=== PATIENT | male | born 1935 | race Asian ===

== ENCOUNTER 2024-03-13 08:02 | Outpatient (AMB) | payer OTHER, SELFPAY ==
--- NOTE | 2024-03-13 08:04 | MHC.OFFVIS ---
Intake Visit Reasons: Freq urination Intake Note: New patient Presents for Frequent Urination/BPH Any Urology Medication: Myrbetriq, Tamsulosin, Finasteride Antibiotic Allergies: None Blood Thinners: Aspirin PVR: 0ml Building Maintenance Custodian: Building Maintenance Custodian Present Accompanied by: Family/Other Allergies chlorthalidone Allergy (Verified 03/13/24 08:26) Unknown hydrochlorothiazide Allergy (Verified 03/13/24 08:26) hyponatremia acetaminophen Allergy (Uncoded 03/13/24 08:26) hepatitis infection citalopram Adverse Reaction (Uncoded 03/13/24 08:26) elevated blood pressure Medication List - Last Reconciled 03/13/24 by BRANDON Tran- amlodipine 2.5 mg PO DAILY aspirin 81 mg PO DAILY atorvastatin 10 mg PO DAILY cholecalciferol (vitamin D3) (Vitamin D3) 25 mcg PO DAILY cyanocobalamin (vitamin B-12) 1,000 mcg PO DAILY entecavir 0.5 mg PO DAILY famotidine 20 mg PO BID finasteride 5 mg PO DAILY folic acid 1 mg PO DAILY lisinopril 20 mg PO DAILY mirabegron ER (Myrbetriq) 50 mg PO DAILY multivitamin with folic acid 400 mcg (Daily-Shanique (with folic acid)) 1 tab PO DAILY tamsulosin 0.4 mg PO DAILY HPI Comments Details: Selvin is a very pleasant 88-year-old [place] male patient of Dr. Loza who was accompanied by his son at today's office visit. 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 He presents to the office today as a new patient for ongoing lower urinary tract symptoms. In discussion with the patient today he reports a longstanding history of lower urinary tract symptoms. He reports previously following up with [facility]. He discusses his most bothersome urinary issue is his episodes of nocturia. He reports nocturia up to 4-5 times per night. Does endorse drinking fluids up until/prior to bed. He reports being on Flomax, finasteride, and Myrbetriq. He reports being on Flomax and finasteride for over a year however started Myrbetriq approximately 6 months ago. He reports no improvement in episodes of nocturia despite these urological medications. In office urinalysis results reviewed with the patient today. PVR 0 mL. When asked he denies any signs and symptoms of sleep apnea. We discussed at length potential causes of nocturia as well as further workup and interventions as well as risks and benefits of these interventions. He denies urinary urgency, urinary frequency, incontinence, hematuria, dysuria, foul smelling urine, changes to urinary stream, flank pain, fever, and or chills. FORMERLY [facility], 1928–1983 Medical History Sick sinus syndrome Chronic diastolic (congestive) heart failure Altered mental status, unspecified Parkinsonian features Moderate tricuspid regurgitation Mild aortic regurgitation Orthostatic hypotension At high risk for falls Ambulates with cane At risk for malnutrition Syncope and collapse Disease due to severe acute respiratory syndrome coronavirus 2 (SARS-CoV-2) Vitamin D deficiency Memory loss Pulmonary congestion Acute cholecystitis Cirrhosis of liver without ascites Arthralgia of hip Back pain without sciatica Knee pain, bilateral Paresthesia Gastritis Dizziness TIA (transient ischemic attack) Constipation due to outlet dysfunction 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 Pre-diabetes Hepatitis C Dyslipidemia Hypertension BPH (benign prostatic hyperplasia) Review of Systems Eyes Reports no additional complaints ENT Reports no additional complaints Card Reports as per HPI Resp Reports as per HPI GI Reports as per HPI Reports as per HPI Musc Reports as per HPI Neuro Reports as per HPI Psych Reports no additional complaints Endo Reports as per HPI Fab/Lymph Reports no additional complaints Aller/Immun Reports no additional complaints Physical Exam Const General: cooperative, healthy appearing, comfortable, no acute distress, well developed, alert and awake Orientation/consciousness: oriented to person Limitations: ambulation with cane HEENT Head: Yes normal to inspection, Yes normocephalic and Yes atraumatic Ears: hearing grossly normal bilaterally Eyes General: appearance normal, both eyes and all related structures Neck Neck: Yes normal visual inspection and Yes trachea midline Chest Chest palpation & inspection: normal inspection of the chest Resp Effort & Inspection: normal respiratory effort and able to speak in complete sentences Cardio Rate: regular rate GI Inspection: Yes normal to inspection General: Yes no CVA tenderness Back/Spine/Pelvis Back: no CVA tenderness Skin General skin exam: no rashes or lesions noted Neuro General: oriented to person Extrem General: Yes normal to inspection Psych Appearance: grossly normal and well kempt Mental Status: mental status grossly normal Speech and movement: Normal speech and movement present and Clear speech present Affect: normal affect Attitude: cooperative Thought process: Normal thought process present Thought content: Normal thought content present Insight: Fair insight present (Psych) Judgement: Fair judgement present (Psych) Office Procedures Post Void Residual Post Residual Void Post Void Residual (PVR): 0 [id number] Void Residual by ultrasound Results AMB Urinalysis, Automated UA Leukoctes 0 Ranjit/uL Last Edit by Lashae Nguyen [facility] on 03/13/24 08:27 UA Nitrite Negative Last Edit by Lashae Nguyen [facility] on 03/13/24 08:27 UA Urobilinogen 0.2 mg/dL Last Edit by Lashae Nguyen [facility] on 03/13/24 08:27 UA Protein 0 mg/dL Last Edit by Lashae Nguyen [facility] on 03/13/24 08:27 UA pH 6.0 Last Edit by Lashae Nguyen [facility] on 03/13/24 08:27 UA Blood 0 Ash/uL Last Edit by Lashae Nguyen [facility] on 03/13/24 08:27 UA Specific [place] 1.010 Last Edit by Lashae Nguyen [facility] on 03/13/24 08:27 UA Ketone Negative Last Edit by Lashae Nguyen [facility] on 03/13/24 08:27 UA Bilirubin 0 mg/dL Last Edit by Lashae Nguyen [facility] on 03/13/24 08:27 UA Glucose 0 mg/dL Last Edit by Lashae Nguyen [facility] on 03/13/24 08:27 Assessment & Plan Assessment & Plan (1) BPH loc w urin obs/LUTS: Code(s): N40.1 - Benign prostatic hyperplasia with lower urinary tract symptoms Category: Medical (2) Nocturia: Code(s): R35.1 - Nocturia Category: Medical Plan In office urinalysis results reviewed with the patient today; as noted above. PVR 0 mL. We discussed at length potential causes of nocturia as well as further workup and interventions. We discussed risks and benefits of these interventions. All questions were answered. Will obtain retroperitoneal ultrasound for further assessment evaluation. SAL offered however deferred. Will obtain PSA for further assessment evaluation. Stop Myrbetriq. Start Gemtesa as discussed and prescribed. Continue finasteride and Flomax as prescribed. We discussed bladder triggers/irritants. We discussed importance of limiting fluids 2-3 hours prior to bed to decrease episodes of nocturia. Discussed signing medical release form to obtain previous urology records for continuity of care. We discussed possible near future in office cystoscopy and or urodynamics for further assessment evaluation. Follow-up in 1-3 months with imaging, PSA, and PVR; or sooner with any issues, concerns, and or questions. Orders: Orders AMB Urinalysis Automated Today Z13.9 - Encounter for screening, unspecified AMB Post Void Residual by ultrasound Today N40.0 - Benign prostatic hyperplasia without lower urinary tract symptoms US retroperitoneal comp Today R35.1 - Nocturia Prostate Specific Antigen Today N40.1 - Benign prostatic hyperplasia with lower urinary tract symptoms, R35.1 - Nocturia Medications: New vibegron (Gemtesa) 75 mg PO DAILY 30 days 30 tabs 3RF N32.81 - Overactive bladder Patient Instructions: The patient had an opportunity to ask questions regarding the treatment plan. All questions were answered. Physical exam, labs, and imaging were discussed and reviewed in detail. As well as risks, benefits, and discussion of treatment choices. No major barriers to understanding were identified. The patient expressed understanding and agreement with the above treatment plan. The patient was made aware they should contact our office by phone for worsening of their current condition, the appearance of new symptoms, or with any questions or concerns. Compliance is encouraged with any medications and follow up testing that is ordered. It is a privilege to be allowed the opportunity to participate in? your urological care.? Again, if you have any questions or concerns If you have any questions or concerns please do not hesitate to contact me. The office is [phone]. This note is constructed using voice recognition software. While every effort has been made to ensure accuracy marketing production manager errors may have been included. Yours sincerely, TIFFANY Tran Coding Level of Care Code New Pt Level 4 (89959) Diagnoses BPH loc w urin obs/LUTS N40.1 Nocturia R35.1 CPT Codes Post Residual Void - PVR CPT Code: 31813-[id number] Void Residual by ultrasound ([id number])
== END 2024-03-13 08:41 | disposition home or self-care (01) ==
PROVIDERS: PCP Student in an Organized Health Care Education/Training Program; Visit Provider Nurse Practitioner Family
DX: N40.1 Benign prostatic hyperplasia with lower urinary tract symptoms (principal); R35.1 Nocturia; Z13.9 Encounter for screening, unspecified
CPT/HCPCS: 99204

== ENCOUNTER 2024-03-13 08:54 | Outpatient (REF) | payer OTHER, SELFPAY ==
--- OUTSIDE RECORDS SUMMARY | 2024-03-13 10:03 | XMS_ITS | Encounter Summary ---
Author Organization [facility] Address [address] [place] [address] Care Team Providers Care Mlt Name Role Phone Juliet Loza Primary Care Provider [phone] Encounter Details Date Type Department Care Team (Latest Contact Info) Description 03/06/2024 Travel Social History Tobacco Use Types Packs/Day Years Used Date Smoking Tobacco: Never Cigarettes 0.3 25 19 76 - 2000 Passive Smoke Exposure: Never Smokeless Tobacco: Never Alcohol Use Standard Drinks/Week Comments No 0 (1 standard drink = 0.6 oz pur e alcohol) Social Connections Answer Date Recorded Connectedness 1 10/27/2023 Financial Resource Strain Answer Date R ecorded Financial Resource Strain 1 2023 Stress Answer Date Recorded Stress 1 10/27/2023 Physical Activity Answer Date Recorded Physical Activity 0 10/04/2018 Food Insecurity Answer Date Recorded Food 1 10/27/2023 Transportation Needs Answer Date Record ed Transportation 1 10/27/2023 Housing Stability Answer Date Recorded Housing 1 10/27/2023 Safety and Environment Answer Date Isaías rded Safety 0 10/15/2021 Utilities Answer Date Recorded Utilities 1 10/27/2023 Employment Answer Date Recorded Stress 0 08/20/2019 Sex and Gender Information Value Date Recorded Sex Assigned at Male 02/17/2017 5:58 AM PST Legal Sex Male 11:36 AM PDT Gender Identity Male 02/17/2017 5:58 AM PST Sexual Orientation Straight 02/17/2017 5: 58 AM PST COVID-19 Exposure Response Date Recorded In the last 10 days, have yo u been in contact with someone who was confirmed or suspected to have Coronavirus/COVID-19? No / Unsure 03/06/2024 9:56 AM EST documented as of this encounter Plan of Treatment Upcoming Encounters Date Type Department Care Team (Late st Contact Info) Description 05/01/2024 9:40 AM EDT Office Visit [facility] [address] [place] [address] Jermaine Rosario DDS [address] [place] [address] documented as of this encounter Goals Goal Patient Goal Type Associated Problems Recent Progress Patient-Stated? Author Blood Pressure < 130/80 Blood Pressure HTN (hypertension) 143/88( 025 10:33 AM EST) No Allison Salazar, PharmD documented as of this encounter Visit Diagnoses Not on filedocumented in this encounter Additional Health Concerns Assessment Noted Time PHQ-9 Depression Total Score: 0 10/27/19 24 8:47 AM PDT documented as of this encounter Care Teams Mlt Relationship Specialty Start Date End Date Juliet Loza PA [facility] [place] [address] PCP - General Primary Care 08/11/23 documented as of this encounter
--- OUTSIDE RECORDS SUMMARY | 2024-03-13 10:03 | XMS_ITS | Clinical Summary ---
Author Organization [facility] Address [address] [place] [address] Care Team Providers Care Information Systems Project Manager Name Role Phone Juliet Loza Primary Care Provider [phone] Source Comments PLEASE NOTE, if this patient is a minor, it may be UNLAWFUL to discuss sensitive information that is contained in these records (such as FAMILY PLANNING, MENTAL HEALTH or SUBSTANCE ABUSE) with the minor patient's parent or other person without the patient's specific authorization.[facility] Allergies Active Allergy Reactions Criticality Noted Date Comments Acetaminophen 02/14/2013 Hepatitis Infection. Chlorthalidone 04/18/2019 Citalopram 02/14/2013 Other reaction(s): elevated blood pressure Hydrochlorothiazide 11/08/2021 Hyponatremia Medications caneIndications :Knee pain, bilateral Pt with knee arthritis , use with ambulation [id number] 1 Each 0 016 Active entecavir (BARACLUDE) 0.5 mg tabletIndicatio ns:Encounter for medical examination to establish care Take 1 Tab by mouth once daily 018 Active acetaminophen (TYLENOL) 500 mg tablet Pain Reliever Extra Strength 500 mg tablet TAKE 1 CAPSULE BY MOUTH EVERY 6 HOURS NEEDED FOR PAIN Active albuterol sulfate 90 mcg/actuation inhaler albuterol sulfate HFA 90 mcg/actuation aerosol inhaler Active food supplemt, lactose-reduced (BOOST CALORIE SMART) liquidIndicatio ns:Other fatigue,Decreas e in appetite,At risk for malnutrition Take by mouth 3 (three) times daily as needed for other reason (in place of a meal) Take [address] of a meal. Up to 3 times per day as needed 118 mL 11 022 Active trospium (SANCTURA) 20 mg tablet Take 20 mg by mouth 022 Active multivitamin tablet Take 1 Tablet by mouth once daily 90 Tablet 1 023 Active polyethylene glycol, PEG, 3350 (MIRALAX) 17 gram packetIndicatio ns:Constipation due to outlet dysfunction Take 17 g by mouth once daily NEEDED FOR CONSTIPATION!! 30 Packet 5 Active multivit with minerals/lutein (MULTIVITAMIN 50 PLUS ORAL) Daily, 0 Refills, Maintenance, 07/04/22 13:48:00 EDT, Partial fill upon patient request if the prescription is for a schedule II opioid drug. Active prednisoLONE acetate (PRED-FORTE) 1 % ophthalmic suspension INSTILL 1 DROP IN THE LEFT EYE 4 (FOUR) TIMES DAILY 10 mL 1 023 Active melatonin 3 mg tabletIndicatio ns:Insomnia, unspecified TAKE 1 TABLET AT BEDTIME NEEDED FOR SLEEP 30 Tablet 2 Active jeanne.stockin g,thigh,reg,med Indications:Ort hostatic hypotension jeanne.stocking ,thigh,reg,med 15 - 20 MMHG dispense 2. one for each leg. 2 Each Active MISCELLANEOUS MEDICAL SUPPLY MISCIndications :Parkinsonian features,At high risk for falls,Ambulates with cane Handicap ramp Dx: At high risk for falls, ambulates with cane, parkinsonian features Duration: 99 years 1 Each Active MISCELLANEOUS MEDICAL SUPPLY MISCIndications :Mixed stress and urge urinary incontinence,In continence of feces, unspecified fecal incontinence type Please dispense size M gloves. Dx:incontinence of feces and mixed incontinence of urine Duration: 99 years 100 Each 2 Active MISCELLANEOUS MEDICAL SUPPLY MISCIndications :At risk for malnutrition,Me alysia loss Please dispense ensure. Dx: At risk for malnutrition and memory loss. Duration: 99 years 30 Each 2 024 Active famotidine (PEPCID) 20 mg tabletIndicatio ns:Chronic heartburn Take 1 Tablet by mouth 2 (two) times daily 180 Tablet 1 Active tamsulosin (FLOMAX) 0.4 mg 24 hr capsuleIndicati ons:Benign prostatic hyperplasia with urinary frequency Take 1 Capsule by mouth once daily for 30 days 30 Capsule Active amLODIPine (NORVASC) 2.5 mg tabletIndicatio ns:Essential hypertension Take 1 Tablet by mouth once daily 90 Tablet 024 Active aspirin [address] tablet Take 1 Tablet by mouth once daily 90 Tablet 1 024 Active atorvastatin (LIPITOR) 10 mg tabletIndicatio ns:Dyslipidemia Take 1 Tablet by mouth nightly at bedtime 90 Tablet 1 024 Active cyanocobalamin (VITAMIN B-12) 1,000 mcg tablet Take 1 Tablet by mouth once daily 90 Tablet 1 024 Active midodrine (PROAMATINE) 2.5 mg tablet Take 1 Tablet by mouth once daily 90 Tablet 1 024 Active MISCELLANEOUS MEDICAL SUPPLY MISCIndications :Routine general medical examination at a health care facility,Esha prajapati,Benign prostatic hyperplasia with urinary frequency,Chron ic diastolic (congestive) heart failure (HCC-CMS),Sick sinus syndrome (HCC-CMS),Cirrh osis of liver without ascites, unspecified hepatic cirrhosis type (HCC-CMS),Essen tial hypertension,Dy slipidemia,Enco unter for medical examination to establish care,Mixed stress and urge urinary incontinence,In continence of feces, unspecified fecal incontinence type by miscellaneous route once daily Ramp for home 1 Each Active blood pressure monitorIndicati ons:Essential hypertension Use to check blood pressure daily and prn. Dx: I10 LOS: 99 Pt needs automatic blood pressure monitor because it is extremely difficult to obtain a manual blood pressure on self. Additionally, pt is not medically trained to use a stethoscope or how to read a sphygmometer. 1 Kit 024 Active folic acid (FOLVITE) 1 mg tablet Take 1 Tablet by mouth once daily 90 Tablet 1 024 Active VITAMIN D3 25 mcg (1,000 unit) capsuleIndicati ons:Vitamin D deficiency TAKE 1 CAPSULE ONCE DAILY 90 Capsule 5 11/04/2 024 Active diaper,brief,ad ult,disposableI ndications:Mixe d stress and urge urinary incontinence,In continence of feces, unspecified fecal incontinence type Height 5 ft 4 in Weight 144 pounds Diagnosis mixed stress and urge urinary incontinence Incontinence of feces, unspecified fecal incontinence type 120 Each 3 024 Active finasteride (PROSCAR) 5 mg tabletIndicatio ns:Encounter for medical examination to establish care TAKE 1 TABLET ONCE DAILY 90 Tablet 024 Active DAILY-HANH, WITH FOLIC ACID, 400 mcg tab TAKE 1 TABLET ONCE DAILY 90 Tablet 024 Active MYRBETRIQ 50 mg [id number] :Benign prostatic hyperplasia with urinary frequency TAKE 1 TABLET ONCE DAILY AT BEDTIME 30 Tablet 024 Active MISCELLANEOUS MEDICAL SUPPLY MISCIndications :Mixed stress and urge urinary incontinence,In continence of feces, unspecified fecal incontinence type Please dispense size medium adult diapers. 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 Whelan, last seen 11/2021 Assessment below For now I have reduced the dose of Lisinopril to 10 mg a day and only to be taken if his SBP >150 mmHg, I have also asked him to wear support stockings and use a cane or a walker for walking and have asked his grandson to discuss this with patient's PCP team to help him get one of this. I have taken liberty to see him in 3-6 months, depending on how he is doing. Also he may want to increase some of his water intake since his BP is running low at times. Orthostatic hypotension 12/19/2021 At high risk for falls 10/25/2021 At risk for malnutrition 10/15/2021 Ambulates with cane 10/15/2021 Syncope and collapse 09/17/2021 Disease due to severe acute respiratory syndrome coronavirus 2 (SARS-CoV-2) 09/05/2021 Overview (09/17/2021): Problem added by Discern Expert Vitamin D deficiency, unspecified 04/19/2020 Memory loss 05/29/2017 Pulmonary congestion 09/30/2016 Overview (09/30/2016): Pt c/o sob after lap cholecystectomy 09/2016. CXR show pleural effusion and mild chf. BNP= 362. ECHO( 09/30/16): Summary: The aortic valve appears trileaflet. There is mild aortic regurgitation. The left ventricular size is normal. The left ventricular wall thickness is mildly increased. Normal LV systolic function. Ejection fraction is 55-65%. There are no regional wall motion abnormalities. Grade II, moderate diastolic dysfunction with pseudonormal LV filling pattern. There is no doppler evidence of increased filling pressures. The left atrium is moderately dilated. The right ventricular size and function appears grossly normal. The right atrium is moderately dilated. The pulmonary artery systolic pressure estimation is 35-40 mmHg. The inferior vena cava appears mildly dilated. There is no pericardial effusion. There is no pleural effusion. CXR( 09/30/16): No significant interval change. Small, unchanged pleural effusions. Persistent atelectasis at the right lung base. Acute cholecystitis 09/28/2016 Overview (09/28/2016): Went to [facility] on 09/23/2016 with 3 days of right upper quadrant pain with associated nausea, found to have acute cholecystitis on physical exam, consistent on imaging. Patient was taken to the OR for a laparoscopic cholecystectomy (Hannah, 09/23/2016). Patient tolerated the procedure well with no complications. Over the weekend patient reported shortness of breath when walking to the bathroom which mildly improved with duonebs and CPT. Patient continued to progress, was ambulating well, ling diet, voiding, and passing flatus and his leukocytosis resolved. US obtained on 09/26 to assess for fluid in the GB fossa which found none. Due to continued complains of dyspnea, Pulmonology was consulted on 09/27/2016 who recommended conservative management. A dose of Lasix was given on 09/28/2016 with improvement. Pt cleared for discharge by attending physician. Pt tolerating diet, with no nausea or vomiting, pain well control with PO pain medications. Pt ambulating and voiding without difficulty. Per PT eval, he is ok to go home with no services. Patient and family aware that he will to follow up with surgery in 2 weeks, as well as PCP for respiratory congestion follow up. Pt encouraged to use IS at home and short but frequent ambulation. Cirrhosis of liver without ascites ([facility]) 01/2017 Benign localized prostatic h yperplasia with lower urinary tract symptoms (LUTS) 01/19/2016 Overview (03/18/2016): PVU Bening prostatic hypertrophy w/urinary obstruction w/other lower urinary tract symptoms. was started on Flomax along with Finasteride. PVU 02/01/16- Benign prostatic hypertrophy with urinary obstruction with other lower urinary tract symptoms. Cont Flomax and Finasteride. F/u 1 yr. Plan bladder scan next visit Arthralgia of right hip 09/09/2014 Back pain without sciatica 09/08/2014 Overview (10/12/2014): Xray of Lumbar spine- mild retrolisthessi of l5/s1. -multilevel facet arthropathy Right hip- no acute osseous abnormality of hip - mild degenerative changes are seen Knee pain, bilateral 01/30/2014 Overview (06/11/2015): Xray- patellar enthesopathy. Paresthesia 10/10/2013 Gastritis 07/10/2013 Overview (12/19/2013): egd- normal on 12/09/13. TIA (transient ischemic attack) 02/17/2013 Overview (04/14/2017): 2013 - TIA. Had some left sided weakness 02/05/13- carotid US - Right Side: 1-49% stenosis in the Internal Carotid Artery. Antegrade flow in the Vertebral Artery. Multiphasic flow is seen in the Subclavian Artery. Left Side: 1-49% stenosis in the Internal Carotid Artery. Antegrade flow in the Vertebral Artery. Multiphasic flow is seen in the Subclavian Artery. Had left side weakness. Dizziness 02/17/2013 Overview (06/17/2015): Completed physical, occupational therapy, rehab for weakness post tia. Seen by ent- sensorineural hearing loss, bilateral Tinnitus bilateral -- dizziness likely multifactorial. -cva, orthostatsis No vestibular cause is seen Epistaxis- humidification/nasal spray. Resolved now. BPH (benign prostatic hyperplasia) 11/16/2012 Overview (10/26/2015): On Finasteride. Follows Urology at [address]. HTN (hypertension) 11/16/2012 Dyslipidemia 11/16/2012 Hepatitis C 11/16/2012 Overview (02/24/2016): Following [facility]. For hepatitis C, patient has completed therapy with ledipasvir/sofsobuvir for an overall duration of 12 weeks, with end of treatment of response and now evidence of sustained virological reponse Colonoscopy-- normal. Mri - 1.7 cm lesion that is stable since 2009, mostly nodular Hyperplasia. Rpt mri of liver - 07/29- benign appearing lesion within liver that decrease in size. U/s- heterogenous echotexture? Hepatitis ? Cirrhosis. Hep c and hep b viral load - negative. Prediabetes 11/16/2012 Hepatitis B infection 11/16/2012 Overview (02/24/2016): Following [facility]at[facility]. 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 HBV is currently undetectable, continue therapy and reenforce compliance Will continue to need imaging every 6 months as part of surveillance for HCC, will schedule for liver US today Return to clinic in 6 months Had Liver USG on 02/05/16 at [facility]. Cirrhosis+ Left ear hearing loss, tm perforation 11/16/2012 Overview (11/24/2014): Bilateral sensori neural loss, left conductive loss Rt tm fibrosis, suggest hearing aids. Constipation due to outlet dysfunction 3 Overview (08/20/2016): colonoscopy at [facility] on 06/13/16: Int and Ext Hemorrhoids. F/u in 10 yrs or prn. Further testing based on pts age and clinical status Resolved Problems Problem Noted Date Diagnosed Date Resolved Date Chronic midline low back dina n without sciatica 08/11/2015 10/26/2015 Dyspepsia 07/02/2015 10/26/2015 Cellulitis of external cheek, right 06/11/2015 08/13/2015 Pruritus 06/11/2015 10/26/2015 Heart burn 06/11/2015 10/26/2015 Myalgia 12/26/2014 04/03/2015 Tinnitus of left ear 09/08/2014 018 Spondylosis of lumbar region without myelopathy or radiculopathy 09/08/2014 10/26/2015 Tinea pedis of left foot 09/08/2014 Nose congestion 05/02/2014 10/26/2015 Epistaxis 05/02/2014 04/03/2015 Pre-op examination 01/30/2014 6 Eczema 07/10/2013 04/03/2015 DM (diabetes mellitus) ([facility]) 11/16/2012 11/16/2012 H/O vitamin D deficiency 11/16/2012 PTSD (post-traumatic stress disorder) 11/16/2012 10/26/2015 tongue numbness 11/16/2012 08/13/2015 Encounters Date Type Department Care Team Description 03/06/2024 10:20 AM EST Office Visit [address] [place] [address] Elan Chavez DDS Loss of retention of dental crown (Primary Dx) 03/06/2024 Travel 01/26/2024 9:00 AM EST Telemedicine Visit [facility] [place] [address] Tye Hawley MD Luu, Van Mixed stress and urge urinary incontinence (Primary Dx); Incontinence of feces, unspecified fecal incontinence type; Primary hypertension 01/26/2024 Interim Notes [address] [place] [address] Paola Samuels MA 01/26/2024 Travel 01/18/2024 9:00 AM EST Office Visit [address] [place] [address] Elan Chavez DDS Removable partial denture with loss of occlusal relationship (Primary Dx) 01/18/2024 Travel 12/15/2023 9:40 AM EDT Office Visit [address] [address] Laz Buenrostro FNP Luu, Van Mixed stress and urge urinary incontinence (Primary Dx); Incontinence of feces, unspecified fecal incontinence type; Double vision 12/15/2023 Travel from Last 3 Months Immunizations Name Administration Dates Next Due Flu, Adjuvant, 65y+ (Fluad) 11/23/2020 Flu, High Dose, 65y+, Fluzon e High Dose 11/09/2022,11/17/2021,11/20/2019 Flu, Preservative Free 10/14/2016 Hep A, adult 04/26/2021 INFLUENZA, SEASONAL, INJECTABLE 11/24/19,11/20/2019,10/04/2017,10/05,10/31/2014,10/30/2011 Influenza (FLUAD), Trivalent , Adjuvanted 09/26/2018 Influenza (FLUBLOK),recombinant,injectable,prese rvative Free 10/27/2023 Influenza (FLUZONE), high-do se, trivalent, PF 10/04/2017,10/31/2014 Novel [id number]-[id number], all formulations 10/06/2015 Novel [id number]-[id number], preservative-free, injectable 10/06/2015 PFIZER COVID VACCINE, PURPLE CAP, 12+ 04/08/2020 ,03/18/2020,03/18/2020 PNEUMOCOCCAL CONJUGATE PCV 13 01/07/2020, 018 PNEUMOCOCCAL POLYSACCHARIDE PPV23 04/03/2015 Pfizer COVID-19 (Comirnaty), Mrna, Lnp-s, Pf, Keenan-sucrose, 30 Mcg/0.3 Ml, 12yr+ 10/27/2023,03/22/2023 TDAP 09/10/2021,04/14/2017 ZOSTER VACCINE, RECOMBINANT (SHINGRIX) 3,04/26/2021 Family History Medical History Relation Name Comments Arthritis Brother Arthritis Father Hypertension Father Relation Name Status Comments Brother Father Social History Tobacco Use Types Packs/Day Years [...] No / Unsure 03/06/2024 9:56 AM EST Last Filed Vital Signs Vital Sign Reading Time Taken Comments Blood Pressure 143/88 03/06/2024 10:33 AM EST Pulse 87 03/06/2024 10:33 AM EST Temperature 36.7 ??C (98.1 ??F) 10/27/2023 8:47 AM ED T Respiratory Rate 18 10/27/2023 8:47 AM EDT Oxygen Saturation 100% 10/27/2023 8:47 AM EDT Inhaled Oxygen Concentration - - Weight 64.3 kg (141 lb 12.8 oz) 10/27/2023 8:47 AM EDT Height 162.6 cm (5' 4 ) 10/27/2023 8:47 AM EDT Body Mass Index 24.34 10/27/2023 8:47 AM EDT Plan of Treatment Upcoming Encounters Date Type Department Care Team (Late st Contact Info) Description 05/01/2024 9:40 AM EDT Office Visit [facility] Dental [address] [place] [address] Jermaine Rosario, DDS [address] [place] [address] Health Maintenance Due Date Last Done Comments Dental FMX/Pano 1935 Dental Perio Charting 1935 EGD (Upper Endoscopy) 1935 Hepatitis B Screening 1935 06/07/2022 Hepatocellular Carcinoma Screening (HCC) 1937 Advanced Care Planning [address] CT Colonography 1982 Colonoscopy 1982 Fecal DNA 1982 Flexible Sigmoidoscopy 1982 FIT/gFOBT 02/09/2008 02/08/2007 Dental BW 07/11/2022 07/09/2021 Imm-Zoster, Recombinant (3 of 3) 09/20/2022 07/26/2022, 07/25/2022, 04/26/2021, Additional history exists Falls Prevention 07/27/2023 07/26/2022, 03/2021, 10/04/2019 Diabetes Screening 12/23/2023 06/22/2023, 0 06/15/2023, 04/10/2023, Additional history exists Dental Examination 01/20/2024 01/17/2023, 0 06/17/2022, 07/09/2021 Dental Prophy 01/20/2024 01/17/2023, 05/0 06/2022, 07/09/2021 Alcohol and Drug Screen 02/14/2024 10/27/19 24, 04/10/2023, 06/07/2022, Additional history exists Depression Annual Screen 02/14/2024 024, 04/10/2023, 04/14/2017 Tobacco Screening 04/10/2024 04/10/2023, 07/26/2022 Imm-Hepatitis A (2 of 2 - Risk 2-dose series) 08/20/2024 04/26/2021 Postponed from 10/27/2021 (Patient postponement) Medicare Annual Wellness Visit 10/26/2024 10/27/2023, 07/26/2022, 01/25/2021, Additional history exists Imm-DTaP/Tdap/Td (3 - Td or Tdap) 09/11/2031 09/10/2021, 04/14/2017 Imm-Pneumococcal 65+ Completed 01/07/2020, 04/14/2017, 04/03/2015, Additional history exists [id number] Completed 10/27/2023, 08/2023, 03/21/2023, Additional history exists Imm-Influenza Completed 10/27/2023, 10/15, 11/08/2022, Additional history exists Colorectal Cancer Screening Discontinued Goals Goal Patient Goal Type Associated Problems Recent Progress Patient-Stated? Author Blood Pressure < 130/80 Blood Pressure HTN (hypertension) 143/88( 025 10:33 AM EST) No Allison Salazar, PharmD Procedures Procedure Name Priority Date/Time Associated Diagnosis Comments LIMITED ORAL EVALUATION - PROBLEM FOCUSED Routine 03/06/2024 10:20 AM EST Loss of retention of dental crown 30 RECEMENT CROWN Routine 03/06/2024 10: 20 AM EST Loss of retention of dental crown REFERRAL SCANNED DOCUMENT 02/28/2024 3:00 AM EST MANDIBULAR PARTIAL DENTURE ADJUSTMENT Routine 01/18/2024 9:00 AM EST Removable partial denture with loss of occlusal relationship OTHER ORDERS SCANNED DOCUMENT 12/18/2023 3:00 AM EST HEMOGLOBIN GLYCOSYLATED A1C Routine 06/22/2023 11:35 AM EDT Essential hypertension Elevated blood sugar PROPHYLAXIS - ADULT Routine 01/17/2023 1 0:20 AM EST Caries PERIODIC ORAL EVALUATION ESTABLISHED PATIENT Routine 01/17/2023 10:20 AM EST Caries HEPATITIS B SURF ANTIBODY HBSAB Routine 06/07/2022 12:51 PM EDT Screening for viral disease Other problems related to lifestyle BITEWINGS - FOUR RADIOGRAPHIC IMAGES Routine 07/09/2021 10:20 AM EDT Dental caries noted on examination from Last 3 Months or Most Recently Relevant to Health Maintenance Results * REFERRAL SCANNED DOCUMENT (02/28/2024 3:00 AM EST) 02/28/2024 3:00 AM EST [facility] Provider Default SCAN REFERRAL Final Resu lt * OTHER ORDERS SCANNED DOCUMENT (12/18/2023 3:00 AM EST) 12/18/2023 3:00 AM EST Rodriguez Grossman MD SCAN OTHER ORDERS Final Resu lt * (ABNORMAL) HEMOGLOBIN GLYCOSYLATED A1C (06/22/2023 11:35 AM EDT) HEMOGLOBIN A1C 5.9(H) <5.7 % of total Hgb [facility] Comment: For someone without known diabetes, a hemoglobin A1c value between 5.7% and 6.4% is consistent with prediabetes and should be confirmed with a follow-up test. For someone with known diabetes, a value <7% indicates that their diabetes is well controlled. A1c targets should be individualized based on duration of diabetes, age, comorbid conditions, and other considerations. This assay result is consistent with an increased risk of diabetes. Currently, no consensus exists regarding use of hemoglobin A1c for diagnosis of diabetes for children. Blood Blood / Unknown 06/22/2023 1 1:35 AM EDT 06/22/2023 11:35 AM EDT us Juliet MABRY LAB - BLOOD DRAW Final Result Performing Organization Address [facility] Co de Phone Number [employer] [address] [place] [id number], [employer] [address] [address] * HEPATITIS B SURF ANTIBODY HBSAB (06/07/2022 12:51 PM EDT) HEPATITIS B SURFACE ANTIBODY QL NON-REACT JORGE LUIS NON-REACT JORGE LUIS [employer] [facility] Blood Blood / Unknown 06/07/2022 1 2:51 PM EDT 06/07/2022 12:51 PM EDT Mirtha Green HYDROGEOLOGY PROFESSOR-C LAB - BLOOD DRAW Edited Resu lt - Final Performing Organization Address [facility] Co de Phone Number [employer] [address] [address], [employer] [address] [address] from Last 3 Months or Most Recently Relevant to Health Maintenance [facility] Care Teams Information Systems Project Manager Relationship Specialty Start Date End Date Juliet Loza PA [facility] [place] [address] PCP - General Primary Care 08/11/23
--- OUTSIDE RECORDS SUMMARY | 2024-03-13 10:03 | XMS_ITS ---
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) ACTIVE 08/16/2023 DIFFICULTY IN WALKING, NOT E LSEWHERE CLASSIFIED (R26.2 - ICD-10-CM) ACTIVE 08/05/2023 MUSCLE WEAKNESS (GENERALIZED) (M62.81 - ICD-10-CM) ACT JORGE LUIS 08/05/2023 NEED FOR ASSISTANCE WITH PERSONAL CARE (Z74.1 - ICD-10 -CM) ACTIVE 08/05/2023 PARESTHESIA OF SKIN (R20.2 - ICD-10-CM) ACTIVE 0 08/05/2023 SICK SINUS SYNDROME (I49.5 - ICD-10-CM) ACTIVE 0 08/05/2023 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-CM) ACTIVE 08/05/2023 CHRONIC VIRAL HEPATITIS C (B18.2 - ICD-10-CM) ACTIVE 08/05/2023 PREDIABETES (R73.03 - ICD-10-CM) ACTIVE 08/05/19 ESSENTIAL (PRIMARY) HYPERTENSION (I10 - ICD-10-CM) ACT JORGE LUIS 08/05/2023 HYPERLIPIDEMIA, UNSPECIFIED (E78.5 - ICD-10-CM) ACTIVE 08/05/2023 ABNORMAL WEIGHT LOSS (R63.4 - ICD-10-CM) ACTIVE 08/05/2023 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) ACTIVE 08/05/2023 PERSONAL HISTORY OF OTHER SP ECIFIED CONDITIONS (Z87.898 - ICD-10-CM) ACTIVE 08/05/2023 UNSPECIFIED SPEECH DISTURBANCES (R47.9 - ICD-10-CM) AC TIVE 08/05/2023 BENIGN PROSTATIC HYPERPLASIA WITHOUT LOWER URINARY TRACT SYMPTOMS (N40.0 - ICD-10-CM) ACTIVE 08/05/2023 OTHER NONSPECIFIC ABNORMAL F INDING OF LUNG FIELD (R91.8 - ICD-10-CM) ACTIVE 08/05/2023 OBSTRUCTIVE SLEEP APNEA (ANYA LT) (PEDIATRIC) (G47.33 - ICD-10-CM) ACTIVE 08/05/2023 CHRONIC KIDNEY DISEASE, STAG E 3 UNSPECIFIED (N18.30 - ICD-10-CM) ACTIVE 08/05/2023 GASTRO-ESOPHAGEAL REFLUX DIS EASE WITHOUT ESOPHAGITIS (K21.9 - ICD-10-CM) ACTIVE 08/05/2023 ALTERED MENTAL STATUS, UNSPECIFIED (R41.82 - ICD-10-CM ) ACTIVE 08/05/2023 Encounters Encounter Performer Performer Role Encounter Diagnoses Location Date Discharge - Discharged to home or self care - [facility] - Private home/apt. with home health services [facility] 08/05/2023 04:07 pm EDT - 08/11/2023 01:30 pm EDT Immunizations Vaccine Date Influenza 11/09/2022 12:00 am EDT Zostavax(Shingles) 07/26/2022 12:00 am EDT Zostavax(Shingles) 04/26/2021 12:00 am EDT Pneumococcal Conjugate Vaccine (PCV13) 0 04/14/2017 12:00 am EST Hepatitis A 04/26/2021 12:00 am EDT SARS-COV-2 (COVID-19) 04/08/2020 12:00 a m EST SARS-COV-2 (COVID-19) 03/18/2020 12:00 a m EST SARS-COV-2 (COVID-19 BOOSTER) 03/22/2023 12:00 am EST SARS-COV-2 (COVID-19 BOOSTER) 03/12/2022 12:00 am EST SARS-COV-2 (COVID-19 BOOSTER) 11/08/2020 12:00 am EDT Tdap 09/10/2021 12:00 am EDT Tdap 04/14/2017 12:00 am EST pneumococcal, unspecified formulation 12:00 am EST Social History
--- OUTSIDE RECORDS SUMMARY | 2024-03-13 10:03 | XMS_ITS | Encounter Summary ---
Author Organization [facility] Address [address] [place] [address] Care Team Providers Care Pattern Attendant Name Role Phone Juliet Loza Primary Care Provider Reason for Visit * Reason Comments Dental Restorative Removable Prosthetics Encounter Details Date Type Department Care Team ([facility] st Contact Info) Description 03/06/2024 10:20 AM EST Office Visit [facility] [address] [place] [phone] Elan Chavez DDS [address] [place] [address] Loss of retention of dental crown (Primary Dx) Social History Tobacco Use Types Packs/Day Years [...] AM EST documented as of this encounter Last Filed Vital Signs Vital Sign Reading Time Taken Comments Blood Pressure 143/88 03/06/2024 10:33 AM EST Pulse 87 03/06/2024 10:33 AM EST Temperature - - Respiratory Rate - - Oxygen Saturation - - Inhaled Oxygen Concentration - - Weight - - Height - - Body Mass Index - - documented in this encounter Progress Notes * Elan Chavez, DDS - 03/06/2024 11:01 AM EST Limited Exam Subjective Selvin [place], 88 year old male, presents with caregiver for limited exam of LR. Post Graduate Intern: Yes: Icelandic Chief Complaint Patient presents with Dental Restorative Removable Prosthetics Description of pain: none Objective RMHx: Yes Vitals: Vitals: 03/06/24 1033 BP: (!) 143/88 Pulse: 87 BP Site: Left Wrist BP Position: Sitting BP Cuff Size: Regular Adult Pain Score: 0 - No pain Assessment Dx: K08.89 Loss of retention of dental crown (primary encounter diagnosis) Dx Details (Clinical Decision-Making): Patient Complaint: Patient presented with crowns for #30 and #29 that had fallen out. Clinical and Radiographic Findings: Upon examination, tooth #29 is fractured at the gumline and is non-restorable. Tooth #30 is intact and suitable for crown recementation. Treatment Plan: Extract tooth #29 due to its non-restorable condition. Adding tooth to existing partial denture to include tooth #29 after the extraction site heals. Re-cement the crown for #30 after it is from the failed orthodox of #29. Additional Notes: Patient was informed of the condition and treatment options, including potential risks and benefits. Pt understood and agreed on treatment plan. Plan Informed Consent/PARQ (Procedure, Alternatives, Risks, Questions): Discussed limited exam findings and treatment needs, questions answered. Patient confirms informed consent, verbalizes understandingof limited exam findings and treatment plan. Pt informed today's exam was a limited exam, and comprehensive exam was not done today. Treatment needs may exist in other areas which were not examined today. Advised patient seek comprehensive care and return for evaluation of other areas as soon as possible. Dental procedures in this visit [id number] - RECEMENT CROWN 30 (Completed) Service provider: Elan Chavez DDS Billing provider: Elan Chavez DDS D0140 - LIMITED ORAL EVALUATION - PROBLEM FOCUSED (Completed) Service provider: Elan Chavez DDS Billing provider: Elan Chavez DDS Treatment Completed: crown on tooth #30 re-cemented after it is from the failed orthodox of #29. Beautilink cement used. removed excess, rechecked occlusion Referral: No orders of the following type(s) were placed in this encounter: Referral. Rx: No orders of the defined types were placed in this encounter. Behavior: Compliant DA: Gifty Doss [place]: ext #[phone] LOULOU Olivier documented in this encounter Plan of Treatment Upcoming Encounters Date Type Department Care Team (Late st Contact Info) Description 05/01/2024 9:40 AM EDT Office Visit [facility] [address] [place] [phone] Jermaine Rosario DDS [address] [place] [id number] Scheduled Orders Name Type Priority Associated Diagnoses Order Schedule 29 EXTRACTION ERUPTED TOOTH OR EXPOSED ROOT Dental Procedures Routine 1 Occurrences starting 03/06/2024 29 ADD TOOTH TO EXISTING PARTIAL DENTURE Dental Procedures Routine 1 Occurrences starting 03/06/2024 documented as of this encounter Goals Goal Patient Goal Type Associated Problems Recent Progress Patient-Stated? Author Blood Pressure < 130/80 Blood Pressure HTN (hypertension) 143/88( 025 10:33 AM EST) No Allison Salazar, PharmD documented as of this encounter Procedures Procedure Name Priority Date/Time Associated Diagnosis Comments 30 RECEMENT CROWN Routine 03/06/2024 10: 20 AM EST Loss of retention of dental crown LIMITED ORAL EVALUATION - PROBLEM FOCUSED Routine 03/06/2024 10:20 AM EST Loss of retention of dental crown documented in this encounter Visit Diagnoses Diagnosis Loss of retention of dental crown- Primary documented in this encounter Additional Health Concerns Assessment Noted Time PHQ-9 Depression Total Score: 0 10/27/19 8:47 AM PDT documented as of this encounter Care Teams Pattern Attendant Relationship Specialty Start Date End Date Juliet Loza PA [facility] [place] [address] PCP - General Primary Care 08/11/23 documented as of this encounter
--- OUTSIDE RECORDS SUMMARY | 2024-03-13 10:03 | XMS_ITS | Clinical Summary ---
Author Organization [facility] it Address [address] [place] [address] Care Team Providers Care Caregiver Services Home Name Role Phone Almita Escobar NP Primary Care Provider Unavailabl e Social History Tobacco Use Types Packs/Day Years Used Date Smoking Tobacco: Never Assessed Sex and Gender Information Value Date Recorded Sex Assigned at Not on file Gender Identity Not on file Sexual Orientation Not on file Plan of Treatment Health Maintenance Due Date Last Done Comments DTaP,Tdap,and Td Vaccines (1 - Tdap) 1956 Zoster Vaccines (1 of 2) 07/15/1987 Pneumococcal Vaccine: 65+ Ye ars (1 of 1 - PCV) 2002 RSV Immunization Patients 60 + Years Old (1 - 1-dose 75+ series) 2012 Cholesterol Screening (Lipid Panel) 01/16/2022 Depression Screening 01/16/2022 Falls Risk Assessment 01/16/2022 Social Influencers of Health Screening 01/16/2022 COVID-19 Vaccine (2023-2 5 season) 2023 Influenza Vaccine (#1) 2023 HIB Vaccines Aged Out No longer eligi ble based on patient's age to complete this topic HPV Vaccines Aged Out No longer eligi ble based on patient's age to complete this topic Hepatitis A Vaccines Aged Out No long er eligible based on patient's age to complete this topic Hepatitis B Vaccines Aged Out No long er eligible based on patient's age to complete this topic IPV Vaccines Aged Out No longer eligi ble based on patient's age to complete this topic MMR Vaccines Aged Out No longer eligi ble based on patient's age to complete this topic Meningococcal ACWY Vaccine Aged Out N o longer eligible based on patient's age to complete this topic RSV Immunization Patients Un luther 20 months Aged Out No longer eligible b ased on patient's age to complete this topic Varicella Vaccines Aged Out No longer eligible based on patient's age to complete this topic Care Teams Caregiver Services Home Relationship Specialty Start Date End Date Almita Escobar NP Need Updated Address PCP - General 10/26/21
--- OUTSIDE RECORDS SUMMARY | 2024-03-13 10:03 | XMS_ITS | Encounter Summary ---
Author Organization [facility] Address [address] [place] [address] Care Team Providers Care Outboard Technician Name Role Phone Juliet Loza Primary Care Provider [phone] Encounter Details Date Type Department Care Team ([facility] st Contact Info) Description 05/31/2021 Dental Interim Note [facility]aring [facility] Main Dental [address] [place] [phone] Shama Reveles, DMD [address] [place] [address] Social History Tobacco Use Types Packs/Day Years Used Date Smoking Tobacco: Never Cigarettes 0.3 25 19 76 - 2000 Smokeless Tobacco: Never Alcohol Use Standard Drinks/Week Comments No 0 (1 standard drink = 0.6 oz pur e alcohol) Social Connections Answer Date Recorded Social Connections and Isolation 1 10/05/2020 Financial Resource Strain Answer Date R ecorded Financial Resource Strain 1 2020 Stress Answer Date Recorded Stress 1 10/05/2020 Physical Activity Answer Date Recorded Physical Activity 0 10/04/2018 Food Insecurity Answer Date Recorded Food 1 10/05/2020 Transportation Needs Answer Date Record ed Transportation 1 10/05/2020 Housing Stability Answer Date Recorded Housing 1 10/05/2020 Safety and Environment Answer Date Isaías rded Safety 1 10/05/2020 Utilities Answer Date Recorded Utilities 1 10/05/2020 Employment Answer Date Recorded Stress 0 08/20/2019 Sex and Gender Information Value Date Recorded Sex Assigned at Male 02/17/2017 5:58 AM PST Legal Sex Male 11:36 AM PDT Gender Identity Male 02/17/2017 5:58 AM PST Sexual Orientation Straight 02/17/2017 5: 58 AM PST COVID-19 Exposure Response Date Recorded In the last 10 days, have jeremías u been in contact with someone who was confirmed or suspected to have Coronavirus/COVID-19? No / Unsure 06/01/2021 3:57 PM EDT documented as of this encounter Plan of Treatment Upcoming Encounters Date Type Department Care Team (Late st Contact Info) Description 05/01/2024 9:40 AM EDT Office Visit [facility] [address] [place] [phone] Jermaine Rosario DDS [address] [place] [address] documented as of this encounter Goals Goal Patient Goal Type Associated Problems Recent Progress Patient-Stated? Author Blood Pressure < 130/80 Blood Pressure HTN (hypertension) 143/88( 025 10:33 AM EST) No Allison Salazar, PharmD documented as of this encounter Procedures Procedure Name Priority Date/Time Associated Diagnosis Comments 30 DOL COMPOSITE - WISDOM (NON BILLABLE) Routine 05/31/2021 12:00 AM EDT 32 D COMPOSITE - WISDOM (NON BILLABLE) Routine 05/31/2021 12:00 AM EDT 29 MODL COMPOSITE - WISDOM (NON BILLABLE) Routine 05/31/2021 12:00 AM EDT 28 DO COMPOSITE - WISDOM (NON BILLABLE) Routine 05/31/2021 12:00 AM EDT 27 MIDFL COMPOSITE - WISDOM (NON BILLABLE) Routine 05/31/2021 12:00 AM EDT 26 L COMPOSITE - WISDOM (NON BILLABLE) Routine 05/31/2021 12:00 AM EDT 26 D COMPOSITE - WISDOM (NON BILLABLE) Routine 05/31/2021 12:00 AM EDT 26 M COMPOSITE - WISDOM (NON BILLABLE) Routine 05/31/2021 12:00 AM EDT 25 F(V) COMPOSITE - WISDOM (NON BILLABLE) Routine 05/31/2021 12:00 AM EDT 23 DF(V) COMPOSITE - WISDOM (NON BILLABLE) Routine 05/31/2021 12:00 AM EDT 22 MDF(V) COMPOSITE - WISDOM (NON BILLABLE) Routine 05/31/2021 12:00 AM EDT 21 B(V) COMPOSITE - WISDOM (NON BILLABLE) Routine 05/31/2021 12:00 AM EDT 5 B(V) COMPOSITE - WISDOM (NON BILLABLE) Routine 05/31/2021 12:00 AM EDT 2 MODL COMPOSITE - WISDOM (NON BILLABLE) Routine 05/31/2021 12:00 AM EDT 30 RETAINER CROWN-FULL CAST PREDOMINANTLY BASE METL Routine 05/31/2021 12:00 AM EDT 29 RETAINER CROWN-FULL CAST PREDOMINANTLY BASE METL Routine 05/31/2021 12:00 AM EDT documented in this encounter Visit Diagnoses Not on filedocumented in this encounter Additional Health Concerns Assessment Noted Time PHQ-9 Depression Total Score: 2 01/26/20 21 2:58 PM PST documented as of this encounter Care Teams Outboard Technician Relationship Specialty Start Date End Date Juliet Loza PA [address] [place] [phone] PCP - General Primary Care 08/11/23 documented as of this encounter
[2024-03-13 11:18] LABS: Prostate Specific Antigen 1.52 ng/mL (<0.05-4.0)
== END 2024-03-13 08:55 | disposition home or self-care (01) ==
LOC: HO.10HDL 08:54
PROVIDERS: Visit Provider Nurse Practitioner Family
DX: Z12.5 Encounter for screening for malignant neoplasm of prostate (principal); R35.1 Nocturia; N40.1 Benign prostatic hyperplasia with lower urinary tract symptoms
CPT/HCPCS: 36415; 51798; 81003; 84153; 99202